=== PATIENT | male | born 1980 | race African-American/Black ===

== ENCOUNTER 2016-08-30 10:08 | Emergency (ER) | payer BC ==
[~2016-08-30] VITALS: Ht 170.2 cm; Wt 95.0 kg
[~2016-08-30 10:08] MED LIST: CYCL-36 PO; IBUP800 PO; MUCI600T PO
[2016-08-30 10:09] VITALS: BP 132/77; PULSE 78; RESP 20; TEMP 98.4; O2SAT 99
--- NOTE | 2016-08-30 10:33 | PD ---
HPI Chief Complaint: Back/ Neck Pain or Injury Time Seen by Provider: 10:29 Travel History International Travel<30 days: No Contact w/Intl Traveler<30days: No Traveled to known affect area: No History of Present Illness HPI 36-year-old Afro-Armenian male presents the emergency Department with history of injury at work 5 days ago. Patient states he was using a large prybar, at work when he felt sudden onset pain and spasm in his left lower back and hip. Patient states the pain at that time was 10 over 10 and he had difficulty walking. Said time he continues to have pain and spasm in the left lower lumbar spine and left hip. He denies weakness, numbness, or a bladder issues. He states if he stands too long the pain worsens. Pain currently is approximately 7 out of 10. He has no known drug allergies. [facility] Social History Alcohol Use: No Tobacco Use: No Substance Use: No Allergies-Medications (Allergen,Severity, Reaction): Coded Allergies: No Known Allergies (Unverified , 08/30/16) Reported Meds & Prescriptions Reported Meds & Active Scripts Active No Active Prescriptions or Reported Medications Review of Systems Except as stated in HPI: all other systems reviewed are Neg General / Constitutional: No: Fever Eyes: No: Visual changes HENT: No: Headaches Cardiovascular: No: Chest Pain or Discomfort Respiratory: No: Shortness of Breath Gastrointestinal: No: Abdominal Pain Genitourinary: No: Dysuria Musculoskeletal: Positive: Myalgias, Arthralgias, Limited ROM, Pain (see history of present illness.) Skin: No Rash Neurologic: No: Weakness Psychiatric: No: Depression Endocrine: No: Polydipsia Hematologic/Lymphatic: No: Easy Bruising Physical Exam Narrative GENERAL: Patient appears in mild to moderate distress. SKIN: Warm and dry. Normal color. Normal turgor. HEAD: Atraumatic. Normocephalic. EYES: Pupils equal and round. No scleral icterus. No injection or drainage. ENT: No nasal bleeding or discharge. Mucous membranes pink and moist. Pharynx is clear. NECK: Trachea midline. Supple nontender. CARDIOVASCULAR: Regular rate and rhythm. RESPIRATORY: No accessory muscle use. Clear to auscultation. Breath sounds equal bilaterally. GASTROINTESTINAL: Abdomen soft, non-tender, nondistended. Hepatic and splenic margins not palpable. MUSCULOSKELETAL: Extremities without clubbing, cyanosis, or edema. No obvious deformities. Patient is soft tissue tenderness along the left lumbar paraspinous muscles with spasms appreciated. Patient also has pain into the left sacroiliac and hip area posteriorly, without significant straight leg raise pain on the left or right. Deep tendon reflexes are 2+ and equal bilaterally in both the patella and Achilles tendon. NEUROLOGICAL: Awake and alert. No obvious cranial nerve deficits. Motor grossly within normal limits. Five out of 5 muscle strength in the arms and legs. Normal speech. PSYCHIATRIC: Appropriate mood and affect; insight and judgment normal. Data Data Last Documented VS Vital Signs Date Time Temp Pulse Resp B/P Pulse Ox O2 Delivery O2 Flow Rate FiO2 08/30/16 10:09 98.4 78 20 132/77 99 Room Air Orders Spine, Lumbar Comp W/Obliq (08/30/16 10:33) Hip, Uni(Ap&Lat) Wo Ap Pelvis (08/30/16 10:33) MDM Medical Decision Making Medical Screen Exam Complete: Yes Emergency Medical Condition: Yes Differential Diagnosis Lumbar strain. Sacroiliac strain. Sciatica. Workplace injury. Narrative Course Patient is medically stable at time of exam. X-rays of the lumbar spine and left hip are ordered. X-rays of the left hip were unremarkable per radiologist. X-rays of the lumbar spine shows Patient is felt to have a lumbar strain. Patient will be treated with ibuprofen 800 mg 3 times daily with food #30. Patient is also given Norflex 100 mg twice a day when necessary muscle spasm. # 20. Patient is also given acetaminophen 500 mg he is to take 2 tabs 4 times daily when necessary pain #60. Patient she use heat followed by ice and gentle stretching as discussed until symptoms improve. Patient is to follow-up with primary care physician if symptoms do not improve in the next week. Patient can return the emergency Department with worsening symptoms as necessary. Work note is given with restrictions 1 week. Diagnosis Primary Impression: Left lumbar pain Qualified Code: M54.5 - Acute left-sided low back pain, with sciatica presence unspecified Additional Impression: Muscle spasm of back Referrals: [facility] Primary Care Physician Patient Instructions: Acute Low Back Pain (ED), General Instructions, Lower Back Exercises (GEN) Departure Forms: Work Release Special Instructions: Limited standing, bending, lifting greater than 20 pounds, or pushing 7 days. Additional Instructions: Patient is felt to have a lumbar strain. Patient will be treated with ibuprofen 800 mg 3 times daily with food #30. Patient is also given Norflex 100 mg twice a day when necessary muscle spasm. # 20. Patient is also given acetaminophen 500 mg he is to take 2 tabs 4 times daily when necessary pain #60. Patient she use heat followed by ice and gentle stretching as discussed until symptoms improve. Patient is to follow-up with primary care physician if symptoms do not improve in the next week. Patient can return the emergency Department with worsening symptoms as necessary. Work note is given with restrictions 1 week. Med/Other Pt SpecificInfo: Prescription(s) given Scripts Orphenadrine ER 12 HR (Orphenadrine CR)100 Mg [id number] Mg PO Q12HR #20 TAB Prov:Prashanth Kebede MD 08/30/16 Ibuprofen 800 Mg [id number] Mg PO Q8H PRN (Pain/Inflammation) #30 TAB Prov:Prashanth Kebede MD 08/30/16 Acetaminophen (Non-Aspirin Pain Relief ES)500 Mg [id number] Mg PO Q6HR PRN (PAIN) # 60 TAB Prov:Prashanth Kebede MD 08/30/16 Disposition: 01 DISCHARGE HOME Condition: Stable Narinder Mg Aug 30, 2016 10:33
--- NOTE | 2016-08-30 11:10 | RADRPT ---
EXAM DATE/TIME: 08/30/2016 10:48 [facility] COMPARISON: No previous studies available for comparison. INDICATIONS : Patient states he fell yesterday, left hip pain. MEDICAL HISTORY : None. SURGICAL HISTORY : None. ENCOUNTER: Initial ACUITY: 2 days PAIN SCORE: 8/10 LOCATION: Left Hip FINDINGS: A two view examination of the left hip was performed. The primary and secondary trabecular pattern o f the femoral neck is intact. The hip joint is of normal width without significant sclerosis or bony hypertrophy. The acetabulum is grossly intact. CONCLUSION: 1. Negative examination. Angel Adams MD on August 30, 2016 at 11:07 Board Certified Radiologist. This report was verified electronically.
[2016-08-30] MEDS ORDERED: ORPH100T99 PO (11:20)
[2016-08-30] MEDS ORDERED: NON-500T13 PO (11:20)
[2016-08-30] MEDS ORDERED: IBUP800T23 PO (11:20)
--- NOTE | 2016-08-30 11:21 | RADRPT ---
EXAM DATE/TIME: 08/30/2016 10:51 [facility] COMPARISON: No previous studies available for comparison. INDICATIONS : Patient states he fell yesterday, lower back pain. MEDICAL HISTORY : None. SURGICAL HISTORY : None. ENCOUNTER: Initial ACUITY: 2 days PAIN SCORE: 8/10 LOCATION: Bilateral Lumbar FINDINGS: There are five non-rib bearing vertebral bodies. The vertebral bodies are in normal alignment withou t evidence of subluxation or scoliosis. Mild degenerative changes are noted. The disc spaces are maritza ntained. The posterior elements are intact without evidence of spondylolysis. The pedicles are inta ct. Bony mineralization is normal. No fracture is identified. CONCLUSION: No acute disease. Mild degenerative changes are noted. Pipo Perez MD on August 30, 2016 at 11:18 Board Certified Radiologist. This report was verified electronically.
== END 2016-08-30 11:51 | disposition home or self-care (01) ==
LOC: NEPK 10:08
DX: M54.5 Low back pain (principal); M62.830 Muscle spasm of back; X50.0XXA Overexertion from strenuous movement or load, initial encounter; X50.9XXA Other and unspecified overexertion or strenuous movements or postures, initial encounter; Y93.89 Activity, other specified; Y92.89 Other specified places as the place of occurrence of the external cause
CPT/HCPCS: 72110; 73502; 99284

== ENCOUNTER 2017-05-29 05:29 | Emergency (ER) | payer BC ==
[~2017-05-29] VITALS: Ht 172.7 cm; Wt 90.0 kg
[~2017-05-29 05:29] MED LIST changes: -CYCL-36 PO; +IBUP1TAB7 PO; -IBUP800 PO; -MUCI600T PO; +NON-500T13 PO; +ORPH100T2 PO
[2017-05-29 05:31] VITALS: BP 136/95; PULSE 67; RESP 16; TEMP 97.7; O2SAT 97
[2017-05-29] MEDS ORDERED: DICL75TA PO (05:43)
[2017-05-29] MEDS ORDERED: BACL10TA PO (05:43)
[2017-05-29] MEDS ORDERED: KETOROLAC TROMETHAMINE 60 MG/2 ML (IM) VIAL IM ONE (05:45)
--- NOTE | 2017-05-29 05:47 | PD ---
HPI Chief Complaint: Back/ Neck Pain or Injury Time Seen by Provider: 05:42 Travel History International Travel<30 days: No Contact w/Intl Traveler<30days: No Traveled to known affect area: No History of Present Illness HPI 37-year-old male presents for evaluation of lower back pain. He reports that yesterday he helped a friend who is moving lift heavy objects. Since then he has had lower back pain which he describes as an aching pain that is worse with movement. He tried putting BenGay on the area but symptoms persisted and this is what prompted evaluation. He denies any abdominal pain, radicular symptoms, bowel bladder incontinence, saddle anesthesia. He has no other complaints at this time. [facility] Past Medical History Medical History: Denies Significant Hx Past Surgical History Surgical History: No Previous Surgery Social History Alcohol Use: No Tobacco Use: No Substance Use: No Allergies-Medications (Allergen,Severity, Reaction): Coded Allergies: No Known Allergies (Unverified Adverse Reaction, Unknown, 05/29/17) Reported Meds & Prescriptions Reported Meds & Active Scripts Active Baclofen 10 Mg Tab 10 Mg PO Q8HR [address] (Diclofenac Sodium) 75 Mg Tabdr 75 Mg PO BID 10 Days Review of Systems Except as stated in HPI: all other systems reviewed are Neg Physical Exam Narrative GENERAL: Well-developed well-nourished male in no acute distress SKIN: Warm and dry. HEAD: Atraumatic. Normocephalic. EYES: Pupils equal and round. No scleral icterus. No injection or drainage. ENT: No nasal bleeding or discharge. Mucous membranes pink and moist. NECK: Trachea midline. No JVD. CARDIOVASCULAR: Regular rate and rhythm. No murmur appreciated. RESPIRATORY: No accessory muscle use. Clear to auscultation. Breath sounds equal bilaterally. GASTROINTESTINAL: Abdomen soft, non-tender, nondistended. Hepatic and splenic margins not palpable. MUSCULOSKELETAL: No obvious deformities. No clubbing. No cyanosis. No edema. 5 out of 5 muscle strength in lower extremities. There is no reproducible tenderness to palpation along the thoracic lumbar midline spine NEUROLOGICAL: Awake and alert. No obvious cranial nerve deficits. Motor grossly within normal limits. Normal speech. Data Data Last Documented VS Vital Signs Date Time Temp Pulse Resp B/P (MAP) Pulse Ox O2 Delivery O2 Flow Rate FiO2 05/29/17 05:31 97.7 67 16 136/95 (109) 97 Orders Orders Ed Discharge Order (05/29/17 05:43) Ketorolac Inj (Toradol Inj) (05/29/17 05:45) [facility] Medical Decision Making Medical Screen Exam Complete: Yes Emergency Medical Condition: Yes Medical Record Reviewed: Yes Differential Diagnosis Lumbar strain, spasm, fracture, herniated nucleus pulposus, spinal stenosis Narrative Course Examination and history are consistent with lumbar strain. The patient will be discharged with a short course of NSAIDs and muscle relaxants. Diagnosis Primary Impression: Lumbar strain Additional Instructions: Medication as needed. Take diclofenac with meals. Do not drive or drink alcohol taking baclofen. Blood sugars activity, heavy lifting. Follow-up with primary care physician in 2 weeks. Return for any emergent medical conditions. Med/Other Pt SpecificInfo: Prescription(s) given Scripts Baclofen (Baclofen) 10 Mg Tab 10 MG PO Q8HR for 10 Days, TAB 0 Refills Prov: Candace Prather MD 05/29/[address] (Diclofenac Sodium DR) 75 Mg Tabdr 75 MG PO BID for 10 Days, #20 TAB 0 Refills Prov: Candace Prather MD 05/29/17 Disposition: 01 DISCHARGE HOME Condition: Stable Yobani Washburn May 29, 2017 05:47
== END 2017-05-29 06:00 | disposition home or self-care (01) ==
LOC: NEPD 05:29
DX: S39.012A Strain of muscle, fascia and tendon of lower back, initial encounter (principal); X50.9XXA Other and unspecified overexertion or strenuous movements or postures, initial encounter; Y93.E6 Activity, residential relocation
CPT/HCPCS: 96372; 99283; J1885